=== PATIENT | male | born 1970 | race African-American/Black ===

== ENCOUNTER 2020-09-23 10:13 | Emergency (ER) | payer SELFPAY ==
--- NOTE | 2020-09-23 10:43 | PC.NURSE ---
pt. in NAD upon arrival; has ambulated around waiting room
[2020-09-23 11:04] VITALS: BP 133/90; PULSE 77; RESP 18; TEMP 36.7; O2SAT 100
--- NOTE | 2020-09-23 12:44 | ED.SKABFB ---
HPI - Skin/Abscess/Foreign Bdy General Chief complaint: Skin/Abscess/Foreign Body Stated complaint: abdominal cellulitis Time Seen by Provider: 09/23/20 11:58 History of Present Illness HPI narrative: Patient is a 50-year-old male who presents ER with cellulitis to his lower abdomen. Associate with a small griffin around a shaved hair follicle. Symptoms began 2 days ago. No fevers or chills or sweats. No drainage. Patient wears a holster and body armor which rub and pinching the area where the infection is started. Related Data Allergies Allergy/AdvReac Type Severity Reaction Status Date / Time No Known Allergies Allergy Verified 09/23/20 12:07 Review of Systems Review of Systems: All systems reviewed & are unremarkable except as noted in HPI and below Constitutional: Constitutional: Denies chills, Denies fever(s) and Denies weakness Gastrointestinal: Gastrointestinal: Denies abdominal pain, Denies nausea and Denies vomiting Integumentary/Breasts: Skin/Breast: Reports pruritus, Reports erythema, Denies rash and Denies skin ulcer PMFSH Past Medical History Medical History (Updated 09/23/20 @ 12:51 by Tyrone Gomez MD) Healthy adult male Surgical History Surgical History (Updated 09/23/20 @ 12:47 by Tyrone Gomez MD) H/O eye surgery Family History Family History (Updated 09/27/15 @ 23:21 by DOCTOR UNKNOWN) Mother Patient's mother is in good health Family history of osteoarthritis Father Family history of type 2 diabetes mellitus Family history of diabetes mellitus in first degree relative Sibling Hypertension Social History Social History Smoking status: Never smoker Alcohol intake: current Exam Narrative: Exam Narrative: GENERAL: Well-appearing, well-nourished, and in no acute distress. HEAD: Normocephalic, atraumatic. EXTREMITIES: Normal range of motion. No edema. SKIN: Warm, dry. Infected hair follicle to lower abdomen inferior of the umbilicus. Induration cellulitis surrounding this. NEURO: Alert and oriented x3. PSYCH: Normal mood and affect. Course Course Emergency Course: Wound incised and drained. Not big enough to pack. Discharged with Bactrim. Topical antibiotic and Band-Aid also applied. Vital Signs Vital signs: Vital Signs Temperature 98.0 F 09/23/20 11:04 Pulse Rate 77 09/23/20 11:04 Respiratory Rate 18 09/23/20 11:04 Blood Pressure 133/90 09/23/20 11:04 Pulse Oximetry 100 09/23/20 11:04 Temperature 98.0 F 09/23/20 11:04 Pulse Rate 77 09/23/20 11:04 Respiratory Rate 18 09/23/20 11:04 Blood Pressure 133/90 09/23/20 11:04 Pulse Oximetry 100 09/23/20 11:04 Procedures Abscess I/D abdomen: Date of Incision: 09/23/20 Time of Incision: 12:40 Local Anesthetic: lidocaine 1% Amount of anesthesia used (mL): 5 Technique: incised with #11 blade Irrigation: No Packing used?: none I&D Results: Pus Discharge Plan Discharge Clinical Impression: Abscess of skin or subcutaneous tissue Patient Disposition: Home, Self-Care Condition: Stable Instructions: Antibiotic Form, Abscess (ED) Additional Instructions: Return the ER if you have fever over 100.4 ?F, you have increasing redness and swelling to abdomen, you have worsening drainage from your wound, you have other concerns. Prescriptions: New sulfamethoxazole-trimethoprim [Bactrim DS] 800-160 mg tablet 1 tablet PO Q12H Qty: 20 RF: 0 Follow-up/Referrals: PHYSICIAN,PRODUCE ASSOCIATE [Primary Care Provider] - Regino Evans MD [Physician] - 1 Week
== END 2020-09-23 13:00 | disposition home or self-care (01) ==
PROVIDERS: Emergency Provider Emergency Medicine
DX: L03.311 Cellulitis of abdominal wall (principal)
CPT/HCPCS: 10060; 99283

== ENCOUNTER → 2022-02-06 12:05 | Outpatient (CLI) | payer OTHER, SELFPAY ==
--- NOTE | ~2022-02-06 | XR_ITS ---
XR chest 2V DATE: 02/06/2022 12:30 INDICATION: Productive cough. Nonsmoker. TECHNIQUE: 2 views COMPARISON: 06/15/2013 two-view chest FINDINGS: Normal heart size. No hilar or mediastinal enlargement. There is mild aortic unfolding. No pulmonary infiltrate or consolidation, pleural effusion or pulmonary vascular congestion or pneumo thorax is detected. IMPRESSION: No active cardiopulmonary disease Reviewed, dictated and finalized at location [facility]. [facility]
== END ==
PROVIDERS: PCP Emergency Medicine; Visit Provider Emergency Medicine
DX: J06.9 Acute upper respiratory infection, unspecified (principal)
CPT/HCPCS: 71046